=== PATIENT | female | born 1975 | race Caucasian/White ===

== ENCOUNTER 2017-10-08 14:14 | Emergency (ER) | payer OTHER ==
[2017-10-08 15:09] VITALS: BP 130/65
--- NOTE | 2017-10-08 15:18 | UC ---
HPI Febrile Illness - HPI Summary HPI Summary: 41 year old female presents with sinus congestion and cough. - History of Current Complaint Chief Complaint: UCGeneralIllness Time Seen by Provider: 10/08/17 15:17 Hx Obtained From: Patient Hx Last Menstrual Period: 08/14/15 Timing: Constant Initial Severity: Moderate Current Severity: Moderate - Allergy/Home Medications Allergies/Adverse Reactions: Allergies Allergy/AdvReac Type Severity Reaction Status Date / Time Morphine Allergy Severe Vomiting Verified 10/08/17 15:04 PMH/Surg Hx/FS Hx/Imm Hx Previously Healthy: Yes - Surgical History Surgical History: Yes Surgery Procedure, Year, and Place: RIGHT OVARY AND TUBE REMOVED--2011, gastric bypass 2006 - Family History Known Family History: Positive: Hypertension Negative: Cardiac Disease, Diabetes - Social History Alcohol Use: Occasionally Alcohol Amount: 2 times a week has a few beers Substance Use Type: None Smoking Status (MU): Light Every Day Tobacco Smoker Type: Cigarettes Amount Used/How Often: 1/2 PPD Household Exposure Type: Cigarettes - Immunization History Most Recent Influenza Vaccination: 2017 Review of Systems Constitutional: Negative Skin: Negative Eyes: Negative ENT: Sore Throat, Nasal Discharge, Sinus Congestion, Sinus Pain/Tenderness Respiratory: Negative Cardiovascular: Negative Gastrointestinal: Negative Genitourinary: Negative Motor: Negative Neurovascular: Negative Musculoskeletal: Negative Neurological: Negative Psychological: Negative All Other Systems Reviewed And Are Negative: Yes Physical Exam Triage Information Reviewed: Yes Vital Signs: Initial Vital Signs Temp 38.1 C 10/08/17 15:04 Pulse 109 10/08/17 15:04 Resp 16 10/08/17 15:04 BP 130/65 10/08/17 15:04 Pulse Ox 100 10/08/17 15:04 Vital Signs Reviewed: Yes Eye Exam: Normal ENT Exam: Normal ENT: Positive: Pharyngeal erythema, Nasal congestion, Nasal drainage, Sinus tenderness Dental Exam: Normal Neck exam: Normal Neck: Positive: 1 Respiratory Exam: Normal Cardiovascular Exam: Normal Abdominal Exam: Normal Musculoskeletal Exam: Normal Neurological Exam: Normal Psychological Exam: Normal Skin Exam: Normal Course/Dx - Diagnoses Clinic Provider Diagnoses: sinusitis. cough Discharge - Discharge Plan Condition: Stable Disposition: HOME Prescriptions: Amoxicillin/Clavulanate TAB* [Augmentin TAB 875*] 875 mg PO BID #20 tab Methylprednisolone [Medrol Dosepak 4 MG*] 4 mg PO .SEE VOLODYMYR INSTRUCTION #21 tab Promethazine-Dm [Promethazine/Dextromethor 6.25-15 mg/5Ml] 1 teasp PO BEDTIME PRN #120 ml PRN Reason: Cough Patient Education Materials: Sinusitis (ED), Cold Symptoms (ED) Forms: *Work Release Referrals: Ginna Desir MD [Medical Doctor] -
== END 2017-10-08 16:02 | disposition home or self-care (01) ==
LOC: UCCORT 14:14
DX: J32.9 Chronic sinusitis, unspecified (principal); R05 Cough; Z88.5 Allergy status to narcotic agent; Z98.84 Bariatric surgery status; F17.210 Nicotine dependence, cigarettes, uncomplicated
CPT/HCPCS: 87502; 99212; G0463

== ENCOUNTER 2018-02-06 10:45 | Emergency (ER) | payer OTHER ==
[2018-02-06 11:23] VITALS: BP 144/79
--- NOTE | 2018-02-06 11:32 | UC ---
UC Dental HPI - HPI Summary HPI Summary: dental pain x 1 day + pain and swelling of right lower jaw + pain with chewing , no fever, no chills - History of Current Complaint Chief Complaint: UCDentalProblem Stated Complaint: JAW/DENTAL PAIN, RIGHT SIDE FACE SWOLLEN Time Seen by Provider: 02/06/18 11:19 Hx Obtained From: Patient Hx Last Menstrual Period: 01/14/18 ?: No Onset/Duration: Gradual Onset, Lasting Days - 1, Still Present Severity: Severe Pain Intensity: 7 Aggravating Factor(s): Cold, Chewing Alleviating Factor(s): Nothing Dental: 1 - brocken molar - Allergies/Home Medications Allergies/Adverse Reactions: Allergies Allergy/AdvReac Type Severity Reaction Status Date / Time morphine Allergy Vomiting Verified 02/06/18 11:33 Home Medications: Home Medications Ibuprofen [Goodsense Ibuprofen] 800 mg PO 02/06/18 [History] buPROPion TAB* [Wellbutrin TAB*] 150 mg 02/06/18 [History] PMH/Surg Hx/FS Hx/Imm Hx - Additional Past Medical History Additional PMH: ALLERGIES ANXIETY LOW IRON - Surgical History Surgical History: Yes Surgery Procedure, Year, and Place: RIGHT OVARY AND TUBE REMOVED--2011, gastric bypass 2006 - Family History Known Family History: Positive: Hypertension Negative: Cardiac Disease, Diabetes - Social History Alcohol Use: Occasionally Alcohol Amount: 2 times a week has a few beers Substance Use Type: None Smoking Status (MU): Light Every Day Tobacco Smoker Type: Cigarettes Amount Used/How Often: 1/2 PPD Household Exposure Type: Cigarettes - Immunization History Most Recent Influenza Vaccination: 2017 Review of Systems Constitutional: Negative Skin: Negative Eyes: Negative ENT: Dental Pain Respiratory: Negative Is Patient Immunocompromised?: No All Other Systems Reviewed And Are Negative: Yes Physical Exam Triage Information Reviewed: Yes Appearance: Well-Nourished, Pain Distress Vital Signs: Initial Vital Signs Temp 98.0 F 02/06/18 11:14 Pulse 84 02/06/18 11:14 Resp 16 02/06/18 11:14 BP 144/79 03/15/18 11:14 Pulse Ox 100 02/06/18 11:14 Vital Signs Reviewed: Yes Eyes: Positive: Conjunctiva Clear ENT: Positive: Normal ENT inspection, Hearing grossly normal, Pharynx normal Dental: Positive: Gross Decay/Caries @ - #30, Dental Fracture @ - #30 Neck exam: Normal Neck: Positive: Supple, Nontender, No Lymphadenopathy Respiratory: Positive: Chest non-tender, Lungs clear, Normal breath sounds Cardiovascular: Positive: RRR, No Murmur, Pulses Normal Skin Exam: Normal Dental Complaint Course/Dx - Differential Dx/Diagnosis Provider Diagnoses: dental pain Discharge - Discharge Plan Condition: Stable Disposition: HOME Prescriptions: Clindamycin Cap(NF) [Clindamycin Cap 300 mg Cap(NF)] 300 mg PO Q6H #30 cap Fluconazole [Diflucan 150 MG (NF)] 150 mg PO ONCE #1 tab HYDROcodone/ACETAMIN 5-325 MG* [[place] 5-325 TAB*] 1 tab PO Q6H PRN #20 tab MDD 4 PRN Reason: Pain Patient Education Materials: Dental Abscess (ED) Referrals: Cecile Fernández MD [Primary Care Provider] - Additional Instructions: follow up with your dentist joshua
== END 2018-02-06 11:35 | disposition home or self-care (01) ==
LOC: UCCORT 10:45
DX: K08.89 Other specified disorders of teeth and supporting structures (principal); F41.9 Anxiety disorder, unspecified; F17.210 Nicotine dependence, cigarettes, uncomplicated
CPT/HCPCS: 99211; G0463